=== PATIENT | male | born 1990 | race Two or more races ===

== ENCOUNTER 2018-04-04 13:05 | Outpatient (CLI) | payer OTHER | END 2018-04-04 23:59 | disposition home or self-care (01) | LOC: WOU 13:05 | PROVIDERS: ATTEND Podiatrist Foot & Ankle Surgery | DX: E10.621 Type 1 diabetes mellitus with foot ulcer (principal); L97.512 Non-pressure chronic ulcer of other part of right foot with fat layer exposed; Z79.4 Long term (current) use of insulin; L03.031 Cellulitis of right toe; B35.1 Tinea unguium; R60.0 Localized edema | CPT/HCPCS: 99205; A6402; G0463 ==